=== PATIENT | female | born 1980 | race Hispanic/Latino ===

== ENCOUNTER → 2024-01-11 | Emergency (ER) | payer BC ==
[~2024-01-11] MED LIST: Ipratropium/Albuterol 3 ML NEB ONE; Ketorolac Tromethamine 30 MG (1 mL) VIAL ONE; Metoclopramide HCl 10 MG (2 mL) VIAL ONE; Sodium Chloride 0.9% 1,000 ML ONE; methylPREDNISolone Sod Succ/PF 125 MG/2 ML VIAL ONE
[2024-01-11 19:31] LABS: Band 2 % (5-11); Base Excess-Venous -3.4 mmol/L (-2.0 to 3.0); Bicarbonate (HCO3v) 18.3 mmol/L (22.0-28.0); CO2 Tension (PvCO2) 25.5 mmHg (42.0-51.0); Calcium, Ionized 0.96 mmol/L (1.15-1.33); Chloride 108 mmol/L (98-107); Eosinophils 3 % (0-10); Hemoglobin 14.7 g/dL (12.0-16.0); Hypochromia SLIGHT = 6-15 cells (100X) (0-5/hpf); Lymphocytes 34 % (21-51); MDiff Complete? YES; Mean Corpuscular HGB CONC 32.1 g/dL (32.0-36.0); Mean Corpuscular Hemoglobin 25.8 pg (27.0-31.0); Mean Corpuscular Volume 80.3 fl (78.0-98.0); Mean Platelet Volume 6.3 fL (7.4-10.4); Monocytes 5 % (0-10); Neutrophil 56 % (42-75); Platelet Adequacy Comment Appears Increased; Platelet Count 594 10x3/uL (130-400); Potassium 4.3 mmol/L (3.5-5.1); RBC Distribution Width 12.6 % (11.5-14.5); Red Blood Cell (RBC) Count 5.72 mill/uL (4.20-5.40); Sodium 135 mmol/L (138-145); T. Carbon Dioxide 19.1 mmol/L (22.0-28.0); White Blood Cell (WBC) Count 12.1 10x3/uL (4.8-10.8); vO2 Saturation-calc 79.1 % (60.0-85.0)
[2024-01-11 19:35] LABS: ALT (SGPT) 40 U/L (8-55); Albumin 4.5 g/dL (3.5-5.0); Alkaline Phosphatase 87 U/L (40-110); Anion Gap 22 mmol/L (10-20); BUN (Urea Nitrogen) 11 mg/dL (7.0-18.7); Bilirubin, Total 0.6 mg/dL (0.2-1.2); Calc. Creatinine Clearance 0 mL/min (70-130); Calcium 9.4 mg/dL (7.8-10.44); Carbon Dioxide 15 mmol/L (22-29); Chloride 104 mmol/L (98-107); Estimated GFR 75; Glucose 108 mg/dL (70-105); Potassium 4.6 mmol/L (3.5-5.1); Protein, Total 8.5 g/dL (6.0-8.3); Sodium 136 mmol/L (136-145)
[2024-01-11 19:37] LABS: AST (SGOT) 32 U/L (5-34); Troponin I Less than 0.010 ng/mL (< 0.028)
[2024-01-11 20:12] LABS: Bilirubin Negative (Negative); Blood, Urine Moderate (Negative); Glucose, Urine (Dipstick) Negative (Negative); Ketone, Urine Negative (Negative); Leukocyte Small (Negative); Nitrite Negative (Negative); Protein, Urine (Dipstick) Negative (Neg-Trace); Specific Gravity, Urine 1.015 (1.005-1.030); Urobilinogen 0.2 mg/dL (Less than 2); pH, Urine 6.5 (5.0-9.0)
[2024-01-11 20:15] LABS: Bacteria/HPF Rare-Few HPF (None Seen); CAUTI Indications for Culture Dysuria,urgency,freq; Clarity Hazy (Clear)
[2024-01-11 20:16] LABS: Urine Culture Reflex No No
[2024-01-11 20:21] LABS: Amphetamine Not Detected (NotDetected); Barbiturates Screen Not Detected (NotDetected); Benzodiazepine Screen Not Detected (NotDetected); Cocaine Metabolite Screen Not Detected (NotDetected); Methadone Not Detected (NotDetected); Methamphetamine Not Detected (NotDetected); Opiate Screen Not Detected (NotDetected); Oxycodone Screen Not Detected (NotDetected); Phencyclidine (PCP) Not Detected (NotDetected); THC/Cannabinoid Screen Not Detected (NotDetected); Tricyclic Screen Not Detected (NotDetected)
== END ==
LOC: MADERS 18:50
DX: J44.1 Chronic obstructive pulmonary disease with (acute) exacerbation (principal); R51.9 Headache, unspecified; R06.4 Hyperventilation
CPT/HCPCS: 71045; 80053; 80306; 81001; 82330; 82803; 83880; 84484; 85025; 85379; 93005; 94640; 96374; 96375; J1885; J2765; J2919; J7030; J7620

== ENCOUNTER 2024-01-21 22:16 | Emergency (ER) | payer BC ==
[2024-01-21] MEDS ORDERED: fentaNYL 50 mcg/mL 1 mL Vial ONE (22:25)
[2024-01-21] MEDS ORDERED: Aspirin Chewable 81 MG TAB ONE (22:25)
[2024-01-21] MEDS ORDERED: Heparin 10,000 UNITS/ 10 ML VIAL ONE (22:34)
[2024-01-21] MEDS ORDERED: Heparin 25,000 units/D5W 500 ML ONE (22:34)
[2024-01-21] MEDS ORDERED: Ondansetron PF 4 MG/2 ML Vial ONE (22:34)
[2024-01-21] MEDS ORDERED: Clopidogrel Bisulfate 75 MG TAB ONE (22:34)
[2024-01-21 22:41] LABS: Band 2 % (5-11); Hematocrit 45.2 % (36.0-47.0); Hemoglobin 14.3 g/dL (12.0-16.0); Lymphocytes 21 % (21-51); MDiff Complete? YES; Mean Corpuscular HGB CONC 31.6 g/dL (32.0-36.0); Mean Corpuscular Hemoglobin 25.5 pg (27.0-31.0); Mean Corpuscular Volume 80.8 fl (78.0-98.0); Mean Platelet Volume 5.8 fL (7.4-10.4); Monocytes 5 % (0-10); Neutrophil 72 % (42-75); Platelet Count 766 10x3/uL (130-400); RBC Distribution Width 12.6 % (11.5-14.5); White Blood Cell (WBC) Count 18.6 10x3/uL (4.8-10.8)
[2024-01-21 22:44] LABS: ALT (SGPT) 30 U/L (8-55); AST (SGOT) 16 U/L (5-34); Alkaline Phosphatase 78 U/L (40-110); Anion Gap 17 mmol/L (10-20); BUN (Urea Nitrogen) 15 mg/dL (7.0-18.7); Bilirubin, Total 0.4 mg/dL (0.2-1.2); Calc. Creatinine Clearance 0 mL/min (70-130); Calcium 9.4 mg/dL (7.8-10.44); Carbon Dioxide 21 mmol/L (22-29); Chloride 105 mmol/L (98-107); Estimated GFR 76; Globulin 3.7 g/dL (2.4-3.5); Glucose 140 mg/dL (70-105); Protein, Total 7.7 g/dL (6.0-8.3); Sodium 139 mmol/L (136-145)
[2024-01-21 22:45] LABS: Troponin I 0.141 ng/mL (< 0.028)
[2024-01-21 22:50] LABS: INR-International Normal Ratio 0.9; Prothrombin Time 12.2 sec (12.0-14.7)
[2024-01-21 22:51] LABS: PTT 23.9 sec (22.9-36.1)
== END 2024-01-21 23:09 | disposition short-term general hospital (02) ==
LOC: MADERS 22:16
DX: I21.3 ST elevation (STEMI) myocardial infarction of unspecified site (principal)
CPT/HCPCS: 71045; 80053; 83880; 84484; 85025; 85610; 85730; 93005; 94760; 96365; 96375; J1644; J2405; J3010